=== PATIENT | male | born 1990 | race Two or more races ===

== ENCOUNTER 2017-05-24 12:08 | Emergency (ER) | payer SELFPAY ==
[~2017-05-24] VITALS: Ht 162.6 cm; Wt 72.6 kg
[2017-05-24 12:54] LABS: INFLUENZA A NEG (NEG); INFLUENZA B NEG (NEG)
== END 2017-05-24 13:15 | disposition home or self-care (01) ==
LOC: CED 12:08 → CFTX 12:08
PROVIDERS: Nurse Practitioner Family
DX: Z11.59 Encounter for screening for other viral diseases (principal)
CPT/HCPCS: 87804; 99283